=== PATIENT | female | born 1975 | race Native Hawaiian/Other Pacific Islander ===

== ENCOUNTER 2016-07-13 15:59 | Emergency (ER) | payer SELFPAY ==
[2016-07-13 16:24] LABS: Basophils % (Auto) 0.5 % (0.0-1.8); Eosinophils % (Auto) 0.2 % (0.0-4.3); Hematocrit 38.3 % (30.3-42.9); Hemoglobin 12.8 gm/dl (10.1-14.3); Mean Corpuscular HGB Conc 34 % (30-34); Mean Corpuscular Hemoglobin 30 pg (28-32); Mean Corpuscular Volume 88 fl (79-97); Platelet Count 338 K/mm3 (140-440); Red Blood Count 4.35 M/mm3 (3.65-5.03); Red Cell Distribution Width 13.3 % (13.2-15.2); White Blood Count 16.7 K/mm3 (4.5-11.0)
[2016-07-13 16:45] LABS: Alanine Aminotransferase 20 units/L (7-56); Albumin/Globulin Ratio 1.3 %; Alkaline Phosphatase 91 units/L (35-129); Anion Gap 23 mmol/L; Blood Urea Nitrogen 15 mg/dL (7-17); Calcium 9.1 mg/dL (8.4-10.2); Carbon Dioxide 22 mmol/L (22-30); Glucose 112 mg/dL (65-100); Lipase 26 units/L (13-60); Potassium 4.6 mmol/L (3.6-5.0); Sodium 137 mmol/L (137-145)
[2016-07-13 17:12] LABS: Bilirubin,Urine NEG (Negative); Blood,Urine SM (Negative); Ketones,Urine NEG (Negative); Leukocyte Esterase,Urine NEG (Negative); Mucus,Urine FEW /HPF; Nitrite,Urine POS (Negative); Protein,Urine <15 mg/dL mg/dL (Negative); Urobilinogen,Urine < 2.0 mg/dL (<2.0)
[2016-07-13] MEDS ORDERED: ZOFRAN IV ONE (22:01)
[2016-07-13] MEDS ORDERED: MORPHINE IV ONE (22:01)
[2016-07-13] MEDS ORDERED: NACL 0.9% 1000 ML 1,000 ML IV ONE (22:01)
--- NOTE | 2016-07-13 22:02 | Emergency Department Report ---
ED Abdominal Pain HPI - General Chief Complaint: Abdominal Pain Stated Complaint: ABD PAIN Time Seen by Provider: 07/13/16 21:55 Source: patient, EMS (ems notes not available at time of chart dictation), RN notes reviewed Mode of arrival: Ambulatory Limitations: No Limitations - History of Present Illness Initial Comments: This is a 40-year-old female. She is previously unknown to me. She does not have a local primary care doctor. Surgical history includes C- section 2. Reports a history of hypertension and high cholesterol. Patient presents to the ER complaining of sharp suprapubic pain since 2:00 in the afternoon. It does not radiate to the back, arms or neck. It is associated with nausea, vomiting, nonbloody, nonbilious. She denies a fever. She denies irritative and obstructive urinary symptoms. The patient denies vaginal discharge. The patient reports that she is sexually active with 1 male partner. No upper abdominal pain. No headache, neck pain, chest pain, shortness of breath. MD Complaint: abdominal pain -: Gradual Location: suprapubic Severity: moderate Quality: stabbing, aching Consistency: constant Improves With: rest Worsens With: movement Associated Symptoms: nausea, vomiting. denies: dysuria - Related Data Previous Rx's Medication Instructions Recorded Last Taken Type Ketorolac [Toradol] 10 mg PO Q6H PRN #20 tablet 07/14/16 Unknown Rx Nitrofurantoin [place]/M-Cryst 100 mg PO Q12HR #13 capsule 07/14/16 Unknown Rx [Macrobid CAP] Ondansetron [Zofran Odt] 4 mg PO QID PRN #20 tab.rapdis 07/14/16 Unknown Rx Allergies Allergy/AdvReac Type Severity Reaction Status Date / Time codeine Allergy Vomiting Verified 07/13/16 16:06 ED Review of Systems ROS: Stated complaint: ABD PAIN Other details as noted in HPI Constitutional: denies: fever Eyes: denies: vision change Respiratory: denies: cough Cardiovascular: denies: chest pain Gastrointestinal: abdominal pain Genitourinary: as per HPI Musculoskeletal: denies: back pain Skin: as per HPI Neurological: as per HPI Psychiatric: as per HPI ED Past Medical Hx - Past Medical History Previous Medical History?: Yes Hx Hypertension: Yes - Surgical History Past Surgical History?: No Additional Surgical History: csection - Social History Smoking Status: Never Smoker Substance Use Type: None - Medications Home Medications: Home Medications Medication Instructions Recorded Confirmed Last Taken Type Ketorolac [Toradol] 10 mg PO Q6H PRN #20 tablet 07/14/16 Unknown Rx Nitrofurantoin [place]/M-Cryst 100 mg PO Q12HR #13 capsule 07/14/16 Unknown Rx [Macrobid CAP] Ondansetron [Zofran Odt] 4 mg PO QID PRN #20 tab.rapdis 07/14/16 Unknown Rx ED Physical Exam - General Limitations: No Limitations General appearance: alert, in no apparent distress - Head Head exam: Present: atraumatic, normocephalic - Eye Eye exam: Present: normal appearance - ENT ENT exam: Present: normal exam, normal orophraynx, mucous membranes moist, normal external ear exam - Neck Neck exam: Present: normal inspection, full ROM. Absent: tenderness, meningismus - Respiratory Respiratory exam: Present: normal lung sounds bilaterally. Absent: respiratory distress, wheezes, rales, rhonchi, stridor, chest wall tenderness, accessory muscle use, decreased breath sounds, prolonged expiratory - Cardiovascular Cardiovascular Exam: Present: regular rate, normal rhythm, normal heart sounds. Absent: bradycardia, tachycardia, irregular rhythm, systolic murmur, diastolic murmur, rubs, gallop - GI/Abdominal GI/Abdominal exam: Present: soft, tenderness, normal bowel sounds, other ( positive suprapubic tenderness.). Absent: distended, guarding, rebound, rigid, pulsatile mass - External exam: Present: normal external exam (escored by JUAN Payton) Speculum exam: Present: normal speculum exam Bi-manual exam: Present: normal bi-manual exam, other (escorted by JUAN Flannery). Absent: cervical motion tendernes, adnexal tenderness, adnexal mass - Extremities Exam Extremities exam: Present: normal inspection, full ROM, normal capillary refill. Absent: tenderness, pedal edema, joint swelling, calf tenderness - Back Exam Back exam: Present: normal inspection, full ROM. Absent: tenderness, CVA tenderness (R), CVA tenderness (L), muscle spasm, paraspinal tenderness, vertebral tenderness - Neurological Exam Neurological exam: Present: alert, oriented X3, normal gait, other (Extraocular movements intact. Tongue midline. No facial droop. Facial sensation intact to light touch in the V1, V2, V3 distribution bilaterally. 5 and 5 strength in 4 extremities.. Sensation is intact to light touch in 4 extremities.). Absent : motor sensory deficit - Psychiatric Psychiatric exam: Present: normal affect, normal mood - Skin Skin exam: Present: warm, dry, intact, normal color. Absent: rash ED Course Vital Signs 07/13/16 07/13/16 07/14/16 16:07 23:57 01:38 Temperature 98.1 F Pulse Rate 86 68 Respiratory 16 14 14 Rate Blood Pressure 149/79 Blood Pressure 175/105 [Left] O2 Sat by Pulse 99 98 Oximetry - Reevaluation(s) Reevaluation #1: 07/13/16 22:49 Differential diagnosis: Urinary tract infection, pelvic inflammatory disease, appendicitis, colitis, diverticulitis, renal colic Assessment and plan: 40-year-old female with suprapubic abdominal pain. She is afebrile with reassuring vital signs. Has a leukocytosis, nitrite positive urine, but does not endorse any classic irritative or obstructive urinary symptoms. She does not report anaphylaxis to codeine. She will be given morphine, Zofran, fluids, we will obtain CT scan of the abdomen and pelvis, and we will perform gynecologic examination. Reevaluation #2: 07/14/16 01:26 patient is reexamined. She feels much improved. CT scan negative for acute surgical disease. Had no cervical motion tenderness. Had no adnexal tenderness. Therefore I think pelvic inflammatory disease is unlikely. Given nitrite positive urine, suprapubic pain, patient will be treated empirically for urinary tract infection. She will be discharged with Macrobid. She'll be discharged with pain medication and nausea medication. Return precautions are reviewed. 07/14/16 01:The patient is instructed to follow up with a primary care doctor for her hypertension/elevated blood pressure.42 ED Medical Decision Making - Lab Data Result diagrams: 07/13/16 16:13 07/13/16 16:13 Vital Signs 07/13/16 16:07 Temperature 98.1 F Pulse Rate 86 Respiratory 16 Rate Blood Pressure 149/79 O2 Sat by Pulse 99 Oximetry Lab Results 07/13/16 07/13/16 07/13/16 Range/Units 16:13 16:13 16:50 WBC 16.7 H (4.5-11.0) K/mm3 RBC 4.35 (3.65-5.03) M/mm3 Hgb 12.8 (10.1-14.3) gm/dl Hct 38.3 (30.3-42.9) % MCV 88 (79-97) fl MCH 30 (28-32) pg MCHC 34 (30-34) % RDW 13.3 (13.2-15.2) % Plt Count 338 (140-440) K/mm3 Lymph % (Auto) 10.9 L (13.4-35.0) % [place] % (Auto) 3.8 (0.0-7.3) % Eos % (Auto) 0.2 (0.0-4.3) % Baso % (Auto) 0.5 (0.0-1.8) % Lymph # 1.8 (1.2-5.4) K/mm3 [place] # 0.6 (0.0-0.8) K/mm3 Eos # 0.0 (0.0-0.4) K/mm3 Baso # 0.1 (0.0-0.1) K/mm3 Seg Neutrophils % 84.6 H (40.0-70.0) % Seg Neutrophils # 14.1 H (1.8-7.7) K/mm3 Sodium 137 (137-145) mmol/L Potassium 4.6 (3.6-5.0) mmol/L Chloride 97.0 L (98-107) mmol/L Carbon Dioxide 22 (22-30) mmol/L Anion Gap 23 mmol/L BUN 15 (7-17) mg/dL Creatinine 0.6 L (0.7-1.2) mg/dL Estimated GFR > 60 ml/min BUN/Creatinine Ratio 25.00 % Glucose 112 H (65-100) mg/dL Calcium 9.1 (8.4-10.2) mg/dL Total Bilirubin 0.20 (0.1-1.2) mg/dL AST 26 (5-40) units/L ALT 20 (7-56) units/L Alkaline Phosphatase 91 (35-129) units/L Total Protein 7.0 (6.3-8.2) g/dL Albumin 4.0 (3.9-5) g/dL Albumin/Globulin Ratio 1.3 % Lipase 26 (13-60) units/L Urine Color Yellow (Yellow) Urine Turbidity Slightly-cloudy (Clear) Urine pH 5.0 (5.0-7.0) Ur Specific [place] 1.018 (1.003-1.030) Urine Protein <15 mg/dl (Negative) mg/dL Urine Glucose (UA) Neg (Negative) mg/dL Urine Ketones Neg (Negative) mg/dL Urine Blood Sm (Negative) Urine Nitrite Pos (Negative) Ur Reducing Substances Not Reportable Urine Bilirubin Neg (Negative) Urine Ictotest Not Reportable Urine Urobilinogen < 2.0 (<2.0) mg/dL Ur Leukocyte Esterase Neg (Negative) Urine WBC (Auto) 1.0 (0.0-6.0) /HPF Urine RBC (Auto) 2.0 (0.0-6.0) /HPF U Epithel Cells (Auto) 10.0 (0-13.0) /HPF Urine Mucus Few /HPF Urine HCG, Qual Negative (Negative) - Radiology Data Radiology results: report reviewed, image reviewed CT scan of the abdomen and pelvis: Negative for acute disease. Appendix is normal. Moderate amount of low density fluid noted in the dependent portion of the pelvis. Incidental fatty infiltration of the liver is noted, diverticulosis is noted, cholelithiasis is noted. Critical care attestation.: If time is entered above; I have spent that time in minutes in the direct care of this critically ill patient, excluding procedure time. ED Disposition Clinical Impression: Suprapubic abdominal pain Disposition: - TO HOME OR SELFCARE Is pt being admited?: No Does the pt Need Aspirin: No Condition: Stable Instructions: Abdominal Pain (ED) Additional Instructions: Cultures were sent today. Results will be available in the next 3-5 days. Have a primary care doctor contact the medical records department to obtain culture results. Take the pain medication, nausea medication, antibiotic medication as directed. Follow up with a primary care doctor, or stationary fireman within the next 3-5 days. Return to the ER right away with new pain, worsened pain, migration of pain, fevers, chills, confusion, intractable nausea or vomiting, inability to tolerate liquids feeds. Follow-up with the primary care doctor for elevated blood pressure. Long-term complications of hypertension/elevated blood pressure include stroke, heart attack, disability, , paralysis, loss of quality of life. The CT scan demonstrated incidental findings, please have a primary care doctor contact the medical records department to obtain CT scan results for follow-up. Prescriptions: Ketorolac [Toradol] 10 mg PO Q6H PRN #20 tablet PRN Reason: Pain Nitrofurantoin [place]/M-Cryst [Macrobid CAP] 100 mg PO Q12HR #13 capsule Ondansetron [Zofran Odt] 4 mg PO QID PRN #20 tab.rapdis PRN Reason: Nausea Referrals: PRIMARY CARE, [Primary Care Provider] - 3-5 Days OSWALDO ELLIS MD [Staff Physician] - 3-5 Days [facility] [Provider Group] - 3-5 Days [facility] [Provider Group] - 3-5 Days [facility] [Provider Group] - 3-5 Days
[2016-07-13] MEDS ORDERED: NACL ONE (22:09)
--- NOTE | 2016-07-14 00:50 | Cat Scan Report ---
FINAL REPORT EXAM: CT ABDOMEN PELVIS W CON HISTORY: lower abd pain TECHNIQUE: Serial axial images through the abdomen and pelvis with coronal and sagittal reconstruction. intravenous administration of 100 milliliters Omni 300 contrast PRIORS: None. FINDINGS: There is mild atelectasis in the lung bases. No pleural effusion is seen. There is a small hiatal hernia. There is relative hypoattenuation of the hepatic parenchyma. No focal hepatic lesion is identified. Cholelithiasis noted. Pancreas appears normal. Spleen appears normal. Adrenal glands appear normal. Kidneys appear normal. Aorta is normal in caliber. Bladder appears normal. Moderate amount of low-density fluid is seen in the dependent portion of the pelvis. Uterus appears normal. Appendix is normal in caliber. Scattered diverticula are seen arising from the colon. There are degenerative changes in the spine. IMPRESSION: 1. Cholelithiasis. 2. Fatty infiltration of the liver. 3. Normal-appearing appendix. 4. Diverticulosis. 5. Low-density fluid is seen in the dependent portion of the pelvis. This is a nonspecific finding. It may be physiologic. Could be related to cyst rupture. Possibility of infection is not excluded.
[2016-07-14] MEDS ORDERED: MACROBID PO ONE (01:28)
[2016-07-14 01:39] VITALS: BP 175/105
== END 2016-07-14 02:27 | disposition home or self-care (01) ==
LOC: ED 15:59
DX: R10.9 Unspecified abdominal pain (principal); I10 Essential (primary) hypertension
CPT/HCPCS: 36415; 74177; 80053; 81001; 81025; 83690; 85025; 87076; 87086; 87186; 87210; 87591; 96361; 96374; 96375; 99285; J2270; J2405; J7030; Q9967